=== PATIENT | male | born 1940 | race Hispanic/Latino ===

== ENCOUNTER 2017-10-21 06:30 | Day surgery (SDC) | payer MEDICARE ==
[2016-07-02 13:51] VITALS: BMI 32.8
[2017-10-21 07:43] LABS: BASO # 0.01 K/mm3 (0.0-2.0); BASO % 0.2 % (0.0-3.0); EOS # 0.6 (0.0-0.7); EOS % 9.2 % (1.5-5.0); GRAN # 3.79 (1.4-6.5); GRAN % 60.4 % (50.0-68.0); HEMOGLOBIN 14.7 g/dL (14.0-18.0); LYMPH # 1.2 (1.2-3.4); LYMPH % 19.1 % (22.0-35.0); MEAN CELL VOLUME 90.6 fl (80.0-105.0); MEAN CORPUSCULAR HEMOGLOBIN 30.8 pg (25.0-35.0); MONO # 0.7 (0.1-0.6); MONO % 11.1 % (1.0-6.0); RBC 4.77 10^6/uL (3.5-6.1); RED CELL DISTRIBUTION WIDTH 12.9 % (11.5-14.5); WHITE BLOOD COUNT 6.3 10^3/ul (4.5-11.0)
[2017-10-21 07:49] LABS: BLOOD UREA NITROGEN 25 mg/dL (7-21); CALCIUM 9.8 mg/dL (8.4-10.5); GFR AFRICAN-AMERICAN > 60; GFR NON-AFRICAN AMERICAN 58
[2017-10-21 07:56] LABS: INR 1.06 (0.93-1.08); PROTHROMBIN TIME 12.2 SECONDS (9.4-12.5)
--- NOTE | 2017-10-21 08:28 | HP ---
REASON FOR ADMISSION: End of the life of pacemaker, admitted for pacemaker generator change. BRIEF CLINICAL HISTORY: This is a 77-year-old male with past medical history significant for peripheral arterial disease, status post carotid artery surgery in 2007, history of permanent pacemaker in 2006, mild aortic stenosis, who had end of the life of pacemaker, so the patient is scheduled for pacemaker generator change. The patient denies chest pain, shortness of breath, or any palpitation. PAST MEDICAL HISTORY: Significant for hypertension, gastroesophageal reflux, mild aortic stenosis, and pacemaker. PAST SURGICAL HISTORY: Significant for carotid artery surgery in 08/2008 and history of permanent pacemaker in 2006. PREVIOUS CARDIAC WORKUP: As follows; the patient had a cardiac catheterization on 07/09/2016 that showed single-vessel critical LAD disease involved mid and proximal circumflex 99% and 80% stenosis, moderate disease in RCA with heavy atherosclerotic burden in RCA, preserved LV function, left artery was diffuse with no focal flow-limiting stenosis, ejection fraction of 65%, successfully the patient underwent PTCA with the drug-eluting stent. Ejection fraction of 65%, EDP was in the range of 12 dated 07/10/2016. Now, the patient admitted for pacemaker generator change because of the end of life of pacemaker. The patient's other workup as follows: The patient had stress test dated 05/11/2016 that causes abnormal, so the patient underwent stress test, so the patient is following, this patient had a cardiac catheterization. The patient had also echocardiography 05/22/2016, ejection fraction of 65%, lead noted in RA, RV, mild aortic stenosis, trace aortic regurgitation, trace mitral regurgitation, [id number] tricuspid regurgitation, and RV systolic pressure of 27, ejection fraction of 65% by echo. Bilateral carotid Duplex dated 05/22/2016 shows [id number] plaque formation in CCA and ICA, patent right carotid artery endarterectomy side, left ICA 29% stenosis noted. SOCIAL HISTORY: Denies any history of alcohol abuse. CURRENT MEDICATIONS: The patient is taking Prevacid, aspirin 325, lisinopril, hydrochlorothiazide, and Plavix. ALLERGIES: NO KNOWN DRUG ALLERGIES. REVIEW OF SYSTEMS: As per HPI. PHYSICAL EXAMINATION: VITAL SIGNS: As follows; height of the patient is 5 feet 11 inches and weight of the patient is 235 pounds. Body mass index 32 kg/m2. HEENT: PERRLA intact. NECK: Supple. No carotid bruit or thyromegaly. CHEST: Clear to auscultation. HEART: S1 and S2 regular. ABDOMEN: Soft. EXTREMITIES: Clubbing and cyanosis negative. LABORATORY DATA: Blood workup: Last blood workup on 07/09/2016 shows WBC 6, hemoglobin 14.7, hematocrit 42.8, and platelet count 144. Chemistry shows sodium 140, potassium 3.0, chloride 100, carbon dioxide 32, anion gap of 30, BUN 29, and creatinine 1.2. Last coagulation profile INR 1.02. IMPRESSION: End of the life of pacemaker, coronary artery disease, status post percutaneous transluminal coronary angioplasty of the circumflex in 2016, hypertension, and hyperlipidemia. RECOMMENDATIONS: We will review the labs. Risks, benefits, and alternatives discussed with the patient and the patient is agreed to proceed for pacemaker generator change. Further recommendations after the PPM gen change. We will follow with you. Thank you Dr. Mendes/Dr. Guy for providing us the opportunity in taking care of the patient, Marquise Mcelroy. Jt Castillo MD [facility]
[2017-10-21] MEDS ORDERED: Lidocaine 2% Inj (20ml) ONE ×2 (09:39)
[2017-10-21] MEDS ORDERED: Midazolam 2 MG/2 ML VIAL ONE (10:04)
[2017-10-21] MEDS ORDERED: Sodium Chloride 0.9% 1,000 ML IV SCH (11:15)
[2017-10-21 11:44] VITALS: RESP 18
[2017-10-21 12:05] VITALS: TEMP 98
[2017-10-21 12:35] VITALS: BP 158/88; PULSE 72; O2SAT 95
--- NOTE | 2017-10-21 17:54 | CARD ---
APPROVED REPORT EKG Measurement Heart [id number] <Conclusion> Electronic atrial pacemaker Right bundle branch block Abnormal ECG
== END 2017-10-21 12:32 | disposition home or self-care (01) ==
LOC: SDSVAS 06:30 → CATH 06:30
PROVIDERS: ATTEND Internal Medicine Cardiovascular Disease
DX: Z45.018 Encounter for adjustment and management of other part of cardiac pacemaker (principal); I10 Essential (primary) hypertension; I35.0 Nonrheumatic aortic (valve) stenosis; I73.9 Peripheral vascular disease, unspecified; K21.9 Gastro-esophageal reflux disease without esophagitis; Z79.82 Long term (current) use of aspirin; E78.5 Hyperlipidemia, unspecified; I25.10 Atherosclerotic heart disease of native coronary artery without angina pectoris; Z95.5 Presence of coronary angioplasty implant and graft
CPT/HCPCS: 33227; 36415; 80048; 85025; 85610; 85730; 93005; C1785; J0690; J2250; J3010; J7030; J7040

== ENCOUNTER 2018-03-11 10:01 | Day surgery (SDC) | payer MEDICARE ==
[2018-03-11 10:30] VITALS: BMI 32.1
[2018-03-11] MEDS ORDERED: Etomidate 20 mg/10ml Inj IV ONE (13:30)
[2018-03-11] MEDS ORDERED: Propofol 10 mg/ml Inj (20 ML) ONE (13:32)
[2018-03-11] MEDS ORDERED: Sodium Chloride 0.9% 1,000 ML IV SCH (14:00)
[2018-03-11 14:39] VITALS: BP 131/73; PULSE 90; RESP 19; TEMP 97.6; O2SAT 96
== END 2018-03-11 14:52 | disposition home or self-care (01) ==
LOC: ENDO 10:01
PROVIDERS: ATTEND Internal Medicine Gastroenterology
DX: K29.50 Unspecified chronic gastritis without bleeding (principal); K44.9 Diaphragmatic hernia without obstruction or gangrene; K21.0 Gastro-esophageal reflux disease with esophagitis; R13.10 Dysphagia, unspecified
CPT/HCPCS: 43239; 88305; 88312; 88342; J2001; J2704; J7030; J7040

== ENCOUNTER 2018-03-27 06:58 | Emergency (ER) | payer MEDICARE ==
[2018-03-27 06:58] VITALS: BMI 32.1
--- NOTE | 2018-03-27 08:05 | ED PDOC ---
Arrival/HPI - General Historian: Patient - History of Present Illness Time/Duration: Other (2 days) Symptom Onset: Sudden Symptom Course: Other (previously bilateral back pain, now just right-sided with radiation to right axillary region) Quality: Aching, Cramping - General Chief Complaint: Back Pain Time Seen by Provider: 03/27/18 07:15 - History of Present Illness Narrative History of Present Illness (Text): 03/27/18 08:06 77 yo with PMH of HTN, CAD s/p stent, mild , and permanent pacer who presents with complaint of back pain x2 days. Pain initially present in upper back bilaterally, behind his shoulder blades, but today is only present behind right shoulder blade. Reports present on awakening yesterday, some relief with 1x Aleve use, but still persists today, so he presented for exam. Some worsening with taking a deep breath, some worsening with use of right arm (norberto when lifting above 90 degrees vertically). Radiating to right lateral chest wall today, in region of axilla, around ribs 4-7. Denies active chest pain, shortness of breath, dyspnea on exertion, nausea, emesis, dizziness, lightheadedness, syncope/near-syncope, focal weakness, numbness of the right arm , radiation of back pain into right arm, loss of gait, dysuria, hematuria, fevers, or chills. Compliant with meds, and follows with senior storage engineer (Brooks) and PMD (Vaughn) regularly. All other ROS in 12-system review negative. PMH: as above PSH: unspecified carotid artery surgery, permanent pacer placement, pacer generator change Fam Hx: non-contributory Soc Hx: former smoker (1/2 ppd x42 yrs, quit in 1983), denies alcohol or illicits, independent in most ADLs, walks without assist device PMD: Vaughn Cardio: Brooks (Sabas Velazquez) Past Medical History - Provider Review Nursing Documentation Reviewed: Yes - Cardiac Hx Hypertension: Yes Hx Pacemaker: Yes - Neurological Hx Paralysis: No - Hematological/Oncological Hx Blood Transfusions: No - Musculoskeletal/Rheumatological Hx Musculoskeletal Disorders: No - Gastrointestinal Hx Gastroesophageal Reflux: Yes Hx Gastrointestinal Ulcer: Yes - Psychiatric Hx Emotional Abuse: No Hx Physical Abuse: No Hx Substance Use: No - Surgical History Other/Comment: cardiac stent x1 - Anesthesia Hx Anesthesia Reactions: No Hx Malignant Hyperthermia: No - Suicidal Assessment Feels Threatened In Home Enviroment: No Family/Social History - Physician Review Nursing Documentation Reviewed: Yes Family/Social History: Other (non-contributory) Smoking Status: Never Smoked Hx Alcohol Use: No (QUIT 1983) Hx Substance Use: No Allergies/Home Meds Allergies/Adverse Reactions: Allergies No Known Allergies Allergy (Verified 03/27/18 07:19) Home Medications: Home Meds Medication Instructions Recorded Confirmed Lisinopril/Hydrochlorothiazide 1 tab PO QAM 02/06/15 03/27/18 [Lisinopril-Hctz 10-12.5 mg Tab] Aspirin [Ecotrin] 81 mg PO DAILY 10/20/17 03/27/18 Pantoprazole [Protonix EC Tab] 40 mg PO DAILY 03/09/18 03/27/18 Review of Systems - Review of Systems Constitutional: Normal. absent: Fatigue, Fevers Eyes: Normal. absent: Vision Changes ENT: Normal. absent: Sore Throat, Rhinorrhea, Epistaxis, Sinus Congestion Respiratory: Normal. absent: SOB, Cough, Wheezing Cardiovascular: Normal. absent: Chest Pain, Palpitations, MAHAJAN, Syncope Gastrointestinal: Normal. absent: Abdominal Pain, Constipation, Diarrhea, Nausea, Vomiting, Food Intolerance Genitourinary Male: Normal. absent: Dysuria, Frequency, Hematuria Musculoskeletal: Back Pain (initially bilateral upper back, now right upper back into right axillary region) Skin: Normal. absent: Rash, Pruritis Neurological: Normal. absent: Headache, Dizziness, Focal Weakness, Gait Changes , Speech Changes Endocrine: Normal. absent: Diaphoresis Physical Exam Vital Signs Reviewed: Yes Temperature: Afebrile Blood Pressure: Normal Pulse: Regular Respiratory Rate: Normal Appearance: Positive for: Well-Appearing, Non-Toxic, Comfortable (at rest, some discomfort with movement or palpation of painful areas) Pain Distress: Other (mild at rest, moderate with palpation at affected sites or with movement) Mental Status: Positive for: Alert and Oriented X 3 - Systems Exam Head: Present: Atraumatic, Normocephalic. No: Tenderness, Contusion, Swelling, Ecchymosis, Abrasion, Laceration Pupils: No: Pinpoint Extroacular Muscles: Present: EOMI. No: Gaze Palsy, Entrapment Conjunctiva: Present: Normal. No: Injected, Icteric Mouth: Present: Moist Mucous Membranes, Normal Lips, Normal Tounge, Normal Teeth. No: Dry, Drooling Nose (External): Present: Atraumatic. No: Abrasion, Laceration Nose (Internal): Present: Epistaxis. No: No Active Bleeding Neck: Present: Normal Range of Motion, Trachea Midline. No: MIDLINE TENDERNESS , JVD Respiratory/Chest: Present: Clear to Auscultation, Good Air Exchange, Decreased Breath Sounds (mildly decreased breath sounds all vance, otherwise clear to auscultation). No: Respiratory Distress, Accessory Muscle Use, Wheezes, Rales, Rhonchi, Tachypneic, Tender to Palpation Cardiovascular: Present: Regular Rate and Rhythm, Normal S1, S2, Peripheal Pulses Present (+2 radials bilaterally). No: Murmurs, Irregular Rhythm, Tachycardic, Bradycardic Abdomen: Present: Normal Bowel Sounds. No: Tenderness, Distention Back: Present: Other (pain along right upper paraspinals at T4-8 region, some tenderness under the right inferior scapular region, tenderness at right axillary region along ribs 4-7; all pain reproducible on palpation) Upper Extremity: Present: Normal Inspection, Normal ROM, NORMAL PULSES. No: Cyanosis, Edema, Tenderness, Swelling, Erythema, Deformity Lower Extremity: Present: Normal Inspection, NORMAL PULSES, Normal ROM. No: Edema, CALF TENDERNESS, Cyanosis, Tenderness, Swelling, Erythema, Deformity Neurological: Present: GCS=15, Speech Normal, Motor Func Grossly Intact, Normal Sensory Function Skin: Present: Warm, Dry, Normal Color. No: Rashes Lymphatic: No: Cervical Adenopathy Psychiatric: Present: Alert, Oriented x 3, Normal Insight, Normal Concentration , Normal Affect, Normal Mood Vital Signs Temp Pulse Resp BP Pulse Ox 03/27/18 09:23 98.2 F 72 18 109/65 99 03/27/18 07:22 97.9 F 89 17 135/90 98 Medical Decision Making Reassessment Condition: Re-examined, Improved ED Course and Treatment: 03/27/18 08:30 Ddx: Muscle spasm vs costochondritis No systemic symptoms, no shortness of breath, and all pain reproducible, so highly unlikely to be cardiac or infectious in origin At family's request, basic labs (CBC, CMP, Mg, Phos) obtained, 2-view CXR obtained Toradol 15mg IV x1 and Flexeril 5mg PO x1 for pain control f/u and reassess for dispo 03/27/18 09:41 Labs and Xray unremarkable, pain improved Given script for 5mg Flexeril PO TID PRN #15, instructed to follow up with PMD within 1 week, pt and daughter agreeable, discharged to home. Seen, reviewed, and discussed with attending, Dr. Lay ([facility]) 03/27/18 12:52 pt seen with resident. right upper back pain no h/o of trauma. pain, ttp right parathorasic region, worse with shoulder abduciton, movement, likely msk pain. cxr neg, no wide mediastinum, no cp, vitals stable pain improved. labs unremarkable. advise outpt fu. (Harman Lay) - Lab Interpretations Lab Results: 03/27/18 08:00 03/27/18 08:00 Lab Results 03/27/18 08:00: Sodium 144, Potassium 3.7, Chloride 106, Carbon Dioxide 26, Anion Gap 16, BUN 34 H, Creatinine 1.3, Est GFR ( Amer) > 60, Est GFR ( Non-Af Amer) 53, Random Glucose 112 H, Calcium 9.0, Phosphorus 3.0, Magnesium 1.9, Total Bilirubin 1.1, AST 18, ALT 23, Alkaline Phosphatase 103, Total Protein 7.2, Albumin 4.1, Globulin 3.1, Albumin/Globulin Ratio 1.3 03/27/18 08:00: WBC 7.7 D, RBC 4.48, Hgb 13.7 L, Hct 38.9 L, MCV 86.8 D, MCH 30.6, MCHC 35.2, RDW 13.1, Plt Count 120, MPV 10.3, Gran % 67.5, Lymph % (Auto) 12.6 L, [place]atte % (Auto) 12.3 H, Eos % (Auto) 7.3 H, Baso % (Auto) 0.3, Gran # 5.22 , Lymph # (Auto) 1.0 L, [place]atte # (Auto) 1.0 H, Eos # (Auto) 0.6, Baso # (Auto) 0.02 - RAD Interpretation Radiology Orders: 03/27/18 07:42 CHEST TWO VIEWS (PA/LAT) [RAD] Stat - Medication Orders Current Medication Orders: Discontinued Medications Cyclobenzaprine HCl (Flexeril) 5 mg PO STAT STA Stop: 03/27/18 07:43 Last Admin: 03/27/18 08:03 Dose: 5 mg Ketorolac Tromethamine (Toradol) 15 mg IVP STAT STA Stop: 03/27/18 07:49 Last Admin: 03/27/18 08:03 Dose: 15 mg MAR Pain Assessment Document 03/27/18 08:03 EWO (Rec: 03/27/18 08:03 EWO [id number]) Pain Reassessment Is this a pain reassessment? No Sleep Is patient sleeping during reassessment? No IVP Administration Document 03/27/18 08:03 EWO (Rec: 03/27/18 08:03 EWO [id number]) Charges for Administration # of IVP Administrations 1 Disposition/Present on Arrival - Present on Arrival Any Indicators Present on Arrival: No History of DVT/PE: No History of Uncontrolled Diabetes: No Urinary Catheter: No History of Decub. Ulcer: No History Surgical Site Infection Following: None - Disposition Have Diagnosis and Disposition been Completed?: Yes Disposition Time: 09:43 Patient Plan: Discharge - Disposition Diagnosis: Back pain Disposition: HOME/ ROUTINE Condition: GOOD Discharge Instructions (ExitCare): Upper Back Pain (DC) Additional Instructions: Please fill your prescription for flexeril and take only as prescribed. Please follow up with your PMD within 1 week of discharge. DARLINE BOWER, thank you for letting us take care of you today. Your provider was Harman Lay DO and you were treated for back pain. The emergency medical care you received today was directed at your acute symptoms. If you were prescribed any medication, please fill it and take as directed. It may take several days for your symptoms to resolve. Return to the Emergency Department if your symptoms worsen, do not improve, or if you have any other problems. Please contact your doctor or call one of the physicians/clinics you have been referred to that are listed on the Patient Visit Information form that is included in your discharge packet. Bring any paperwork you were given at discharge with you along with any medications you are taking to your follow up visit. Our treatment cannot replace ongoing medical care by a primary care provider outside of the emergency department. Thank you for allowing the [facility] team to be part of your care today. If you had an X-Ray or CT scan: A Radiologist will review the ED reading if any change in treatment is needed we will contact you. If you had a blood, urine, or wound culture: It will take several days for the results, if any change in treatment is needed we will contact you. If you had an STI test: It will take 48 hours for the results. Please call after 1 week if you have not heard back. Prescriptions: Cyclobenzaprine [Flexeril] 5 mg PO TID PRN #15 tab PRN Reason: back pain/muscle spasm Referrals: Red Mendes MD [Primary Care Provider] - Follow up with primary Forms: [facility] (Greenlandic)
[2018-03-27 08:42] LABS: BASO # 0.02 K/mm3 (0.0-2.0); BASO % 0.3 % (0.0-3.0); EOS # 0.6 (0.0-0.7); EOS % 7.3 % (1.5-5.0); GRAN # 5.22 (1.4-6.5); GRAN % 67.5 % (50.0-68.0); HEMOGLOBIN 13.7 g/dL (14.0-18.0); LYMPH % 12.6 % (22.0-35.0); MEAN CELL VOLUME 86.8 fl (80.0-105.0); MEAN CORPUSCULAR HEMOGLOBIN 30.6 pg (25.0-35.0); MEAN CORPUSCULAR HGB CONC 35.2 g/dl (31.0-37.0); MEAN PLATELET VOLUME 10.3 fl (7.0-11.0); MONO % 12.3 % (1.0-6.0); RBC 4.48 10^6/uL (3.5-6.1); RED CELL DISTRIBUTION WIDTH 13.1 % (11.5-14.5); WHITE BLOOD COUNT 7.7 10^3/ul (4.5-11.0)
[2018-03-27 08:51] LABS: ALB/GLOB RATIO 1.3 (1.1-1.8); ALBUMIN 4.1 g/dL (3.0-4.8); ALT/SGPT 23 U/L (7-56); AST/SGOT 18 U/L (17-59); BLOOD UREA NITROGEN 34 mg/dL (7-21); GFR AFRICAN-AMERICAN > 60; GFR NON-AFRICAN AMERICAN 53
--- NOTE | 2018-03-27 09:03 | RAD ---
HISTORY: reproducible upper back and right axillary pain COMPARISON: 06/07/2012 TECHNIQUE: Chest PA and lateral FINDINGS: LUNGS: No active pulmonary disease. PLEURA: No significant pleural effusion identified. No pneumothorax apparent. CARDIOVASCULAR: No radiographic findings to suggest acute or significant cardiovascular disease. Position/ configuration of pacemaker device: Satisfactory. OSSEOUS STRUCTURES: No significant abnormalities. VISUALIZED UPPER ABDOMEN: Normal. OTHER FINDINGS: None. IMPRESSION: No active disease. No significant interval change compared to the prior examination(s).
[2018-03-27 09:24] VITALS: BP 109/65; PULSE 72; RESP 18; TEMP 98.2; O2SAT 99
== END 2018-03-27 09:23 | disposition home or self-care (01) ==
LOC: ED 06:58
DX: M54.6 Pain in thoracic spine (principal); I25.10 Atherosclerotic heart disease of native coronary artery without angina pectoris; I10 Essential (primary) hypertension; Z95.5 Presence of coronary angioplasty implant and graft; Z95.0 Presence of cardiac pacemaker
CPT/HCPCS: 71046; 80053; 83735; 84100; 85025; 96374; 99283; J1885